=== PATIENT | female | born 1965 | race Caucasian/White ===

== ENCOUNTER → 2017-08-28 | Outpatient (CLI) | payer OTHER ==
[~2017-08-28] MED LIST: BIOTCAP PO; VITA1000 PO; VITA10004 PO; VITA250T26 PO
--- NOTE | 2017-08-28 13:28 | RADRPT ---
EXAM DATE/TIME: 08/28/2017 11:42 [place] COMPARISON: No previous studies available for comparison. INDICATIONS : Evaluate for pneumonia, pneumothorax and communicable diseases. Pre-op uterine surgery MEDICAL HISTORY : None. SURGICAL HISTORY : None. ENCOUNTER: Initial ACUITY: 1 day PAIN SCORE: 0/10 LOCATION: chest FINDINGS: PA and lateral views of the chest demonstrate the lungs to be symmetrically aerated without evidence of mass, infiltrate or effusion. The cardiomediastinal contours are unremarkable. Osseous structure s are intact. CONCLUSION: Normal examination. Glen Andrew MD on August 28, 2017 at 13:26 Board Certified Radiologist. This report was verified electronically.
--- NOTE | 2017-08-30 08:40 | EKG ---
Date Performed: 08/28/2017 Time Performed: 11:20:30 PTAGE: 52 years EKG: Sinus rhythm LOW QRS VOLTAGE IN PRECORDIAL LEADS BORDERLINE ECG NO PREVIOUS TRACING DOCTOR: Glen Madrigal Interpretating Date/Time 08/30/2017 08:39:32
== END ==
LOC: CPRE 10:48
PROVIDERS: ATTEND Obstetrics & Gynecology
DX: Z01.811 Encounter for preprocedural respiratory examination (principal); Z01.810 Encounter for preprocedural cardiovascular examination; R94.31 Abnormal electrocardiogram [ECG] [EKG]
CPT/HCPCS: 71020; 93005

== ENCOUNTER → 2017-09-03 | Day surgery (SDC) | payer OTHER ==
[~2017-09-03] VITALS: Ht 157.5 cm; Wt 80.2 kg
[~2017-09-03] MED LIST changes: +*RESP: ALBUTEROL 2.5 MG/3 ML NEB (PRN) PERIprocedural Use ONLY NEB ONE; +*morphine SULFATE 8 MG/ML PERIprocedure ONLY ONE; +ACETAMINOPHEN 1000 MG/100 ML 100 ML IV ONE; +BUPIVACAINE/EPINEPHRINE 0.25% 50 ML VIAL ONE; +CLINDAMYCIN 600 MG/NS 100 ML IV PRN; +DEXAMETHASONE SOD PHOS 4 MG/ML VIAL IV ONE; +DO NOT ADM ANY ANTICOAGULANT DRUGS PRN; +ESMOLOL HCL 100 MG/10 ML VIAL IV ONE; +FUROSEMIDE 40 MG/4 ML VIAL ONE; +GENTAMICIN/SOD CHL 80 MG/100 ML IV PRN; +GLYCOPYRROLATE 1 MG/5 ML SYRINGE IV PUSH ONE; +INSULIN HUMAN REGULAR 1,000 UNITS/10 ML VIAL SQ PRN; +KETOROLAC TROMETHAMINE 30 MG/ML (IVP) VIAL IV PUSH ONE; +KETOROLAC TROMETHAMINE 60 MG/2 ML (IM) VIAL IM PRN; +LACTATED RINGER'S 1000 ML IV PRN; +LIDOCAINE HCL 1% PF 5 ML SYRINGE OTHER ONE; +METOPROLOL TARTRATE 25 MG TAB PO PRN; +MIDAZOLAM HCL 2 MG/2 ML VIAL IV ONE; +MORPHINE SULFATE 4 MG/ML INJ IV ONE; +NEOSTIGMINE 3 MG/3 ML SYR IV ONE; +ONDANSETRON HCL 4 MG/2 ML VIAL IV PUSH ONE; +ONDANSETRON HCL 4 MG/2 ML VIAL IV PUSH PRN; +ONDANSETRON HCL 4 MG/2 ML VIAL ONE; +PHENYLEPH/NS 1000 MCG/10 ML SYR IV ONE; +PROMETHAZINE INJ 25 MG/ML VIAL ONE; +PROPOFOL 200 MG/20 ML AMP IV ONE; +ROCURONIUM INJ 50 MG/5 ML SYRINGE IV PUSH ONE; +SODIUM CHLORID 0.9% 500 ML IV PRN; +SODIUM CHLORIDE 0.9% INJ 100 ML ONE; +ePHEDrine/NS 25 MG/5 ML SYR IV ONE; +oxyCODONE/ACETAMINOPHEN 5 MG/325 MG TAB PO PRN
--- NOTE | 2017-09-03 10:37 | MP ---
cc: GIRMA LONDONO DATE OF SURGERY 09/03/2017 PREOPERATIVE DIAGNOSIS Menorrhagia, anemia, enlarged uterus. POSTOPERATIVE DIAGNOSIS Menorrhagia, anemia, enlarged uterus. PROCEDURE Examination under anesthesia, laparoscopic-assisted supracervical hysterectomy, left salpingectomy, right salpingo-oophorectomy. Cystoscopy. SURGEON MD Brendon ASSISTANT [employer]ER Kathi Cuenca ANESTHESIA General endotracheal. FLUIDS 1100 cc crystalloids. ESTIMATED BLOOD LOSS 50 cc. URINE OUTPUT 600 cc clear yellow at the end of the procedure. FINDINGS 1. The uterus was approximately 14 weeks in size. 2. Right ovarian cyst was noted. 3. Left ovary appeared normal. 4. A large 5-cm fibroid was noted in the posterior fundus of the uterus. PROCEDURE The patient was taken to the operating room where a general anesthesia was found to be adequate. She was then prepped and draped in a normal sterile fashion in the dorsal lithotomy position. A Lorenzo catheter was placed into the urinary bladder using sterile technique. A speculum was placed in the vagina. A single-tooth tenaculum applied to the anterior lip of the cervix. The cervix was then gently dilated with Rober dilators. The tenaculum was replaced with a suture and a small V-CARE uterine manipulator was inserted through the cervix into the uterus. The balloon was inflated. The cups were positioned. The instruments were removed from the vagina. The gloves were changed and attention was turned to the abdominal portion of the procedure. A 5-mm incision was made just above the umbilicus and a 5-mm trocar and camera were inserted into the abdomen under direct visualization. The abdomen was insufflated with approximately 3.5 liters of CO2 gas. A 5-mm trocar was placed in the right lower quadrant. A 10/12-mm trocar was placed in the left lower quadrant. The round ligaments were transected bilaterally using the harmonic scalpel. The bladder flap was created bilaterally using the harmonic scalpel and the bladder was gently dissected off the anterior surface of the uterus and cervix. The left fallopian tube was transected from the broad ligament using the harmonic scalpel. The right infundibulopelvic ligament was transected using the harmonic scalpel. The remaining broad ligaments, cardinal ligaments and uterine arteries were transected down to the level of the cervix bilaterally using the harmonic scalpel. Hemostasis was noted. The uterus was amputated from the cervix using the harmonic scalpel. The uterus was extracted and sent to pathology. The fallopian tubes were sent separately with the right ovary to pathology. Again, hemostasis was noted from all pedicles. The pelvis was suctioned. Jessie was placed over the raw surface areas. The endocervical canal was cauterized using the harmonic scalpel. The Suture Ease suture passer was used to place an 0 Vicryl suture through the fascia and peritoneum of the left lower quadrant 10/12-mm incision. The gas was allowed to escaped. All the instruments were removed, the trocars were removed. The skin incisions were closed with 4-0 Monocryl. The V-Chaordix uterine manipulator had been removed previously. The Lorenzo catheter was used to instill approximately 250 cc of saline into the urinary bladder. The Lorenzo catheter was removed, cystoscopy was performed and urine was noted to be effluxing from both of the ureteral meati. No bladder injury was noted. The cystoscope was removed. The Lorenzo catheter was replaced. The suture was removed from the anterior lip of the cervix. Hemostasis was noted vaginally. The sponge, lap, needle and instrument counts were correct. Pathology was uterus, bilateral fallopian tubes and right ovary. The patient was awakened from anesthesia and transferred to the recovery room in stable condition. MD MARY ANNE West/SSB /10:15 AM /10:21 AM
[2017-09-03 13:00] VITALS: BP 136/85; PULSE 96; RESP 18; TEMP 97.8; O2SAT 96
== END | disposition home or self-care (01) ==
LOC: HSDC 05:44
PROVIDERS: ATTEND Obstetrics & Gynecology
DX: D25.9 Leiomyoma of uterus, unspecified (principal); N83.201 Unspecified ovarian cyst, right side; N92.0 Excessive and frequent menstruation with regular cycle; D64.9 Anemia, unspecified
CPT/HCPCS: 00840; 58542; 86850; 86900; 86901; 88307; 94664; J0131; J1100; J1580; J1885; J2250; J2270; J2370; J2405; J2550; J2710; J3010; J7120; J7613; J1940